=== PATIENT | female | born 1980 | race African-American/Black ===

== ENCOUNTER 2018-04-17 10:53 | Emergency (ER) | payer SELFPAY ==
[2018-04-17 11:55] LABS: #Basophils 0.1 thou/uL (0.0-0.2); #Eosinphils 0.1 thou/uL (0.0-0.7); #Lymphocytes 2.8 thou/uL (1.20-3.40); #Monocytes 0.6 thou/uL (0.11-0.59); #Neutrophils 5.3 thou/uL (1.40-6.50); %Basophils 1.7 % (0.0-1.0); %Eosinophils 1.4 % (0.0-10.0); %Lymphocytes 31.5 % (21.0-51.0); %Monocytes 6.1 % (0.0-10.0); %Neutrophils 59.3 % (42.0-75.0); Hemoglobin 11.7 g/dL (12.0-16.0); Mean Corpuscular Hemoglobin 28.3 pg (27.0-31.0); Mean Corpuscular Volume 91.3 fL (78.0-98.0); Mean Platelet Volume 9.3 fL (7.4-10.4); Platelet Count 318 thou/uL (130-400); RBC Distribution Width 12.8 % (11.5-14.5); Red Blood Cell (RBC) Count 4.12 mill/uL (4.20-5.40); White Blood Cell (WBC) Count 8.9 thou/uL (4.8-10.8)
[2018-04-17 12:00] LABS: BHCG - Serum Negative (NEGATIVE); Pregs Control Background? CLEAR/WHITE (CLR/WHITE); Pregs Control Bar Appear? YES (CONTROL BAR)
[2018-04-17 12:09] LABS: ALT (SGPT) 11 U/L (8-55); AST (SGOT) 20 U/L (5-34); Albumin 3.8 g/dL (3.5-5.0); Alkaline Phosphatase 60 U/L (40-150); Anion Gap 12 mmol/L (10-20); BUN (Urea Nitrogen) 8 mg/dL (7.0-18.7); Bilirubin, Total 0.3 mg/dL (0.2-1.2); Calc. Creatinine Clearance 0 mL/min (70-130); Calcium 8.8 mg/dL (7.8-10.44); Carbon Dioxide 23 mmol/L (22-29); Chloride 106 mmol/L (98-107); Estimated GFR-MDRD Greater than 90; Globulin 3.8 g/dL (2.4-3.5); Glucose 95 mg/dL (70-105); Potassium 3.5 mmol/L (3.5-5.1); Protein, Total 7.6 g/dL (6.0-8.3); Sodium 137 mmol/L (136-145)
[2018-04-17 12:30] LABS: Bilirubin Negative (Negative); Blood, Urine Large (Negative); Clarity Cloudy (Clear); Glucose, Urine (Dipstick) Negative (Negative); Leukocyte Negative (Negative); Nitrite Negative (Negative); Protein, Urine (Dipstick) Negative (Neg-Trace); Urobilinogen 0.2 mg/dL (0.2-1.0); pH, Urine 7.5 (5.0-9.0)
[2018-04-17 12:34] LABS: Pregnancy Test - Urine (BHCG) Negative (Negative); Pregu Control Bar Appear? YES (CONTROL BAR)
[2018-04-17 12:35] LABS: Pregu Control Background? CLEAR/WHITE (CLR/WHITE); RBC/HPF GREATER THAN 50-TNTC HPF (0-3)
[2018-04-17 12:36] LABS: Squamous Epithelial 0-3 HPF (0-3); Trichomonas/HPF 1+ HPF (None Seen); WBC/HPF 0-3 HPF (0-3)
[2018-04-17 12:37] LABS: Bacteria/HPF 1+ HPF (None Seen)
--- NOTE | 2018-04-17 13:23 | ULT ---
ULTRASOUND PELVIC ULTRASOUND TRANSVAGINAL DOPPLER DUPLEX: 04/17/2018 HISTORY: A 37-year-old female with heavy vaginal bleeding for 10 days. Menometrorrhagia. TECHNIQUE: Transabdominal transducer used to evaluate intrapelvic contents using the urinary bladder as an acous tic window. Endovaginal transducer used to visualize intrapelvic contents in greater detail. Color fl ow Doppler and Pulsed Doppler spectral waveform analysis of ovaries. FINDINGS: Uterus: 8.5 x 3.5 x 4.5 cm. Endometrial stripe: 1.9 cm (19 mm) with heterogeneous echogenicity. Right ovary: Difficult to measure because of multiple very large exophytic cysts. Left ovary: 5 x 2.5 x 4.5 cm. Uterine leiomyoma (fibroid): None. Blood flow in both ovaries: Present. Ovarian cyst: Multiple bilateral ovarian cysts. The largest on the right is 10 x 5.5 x 7 cm. The l argest on the left is 2.5 x 2 x 1 cm. Free fluid in the cul-de-sac: None. IMPRESSION: 1. Thickened, heterogeneous endometrial stripe. 2. Multiple bilateral ovarian cysts. The ones on the right are larger. This includes a very large, 10 x 7 x 5.5 cm exophytic right ovarian cyst. STEPHANI Boyd POS: YUNG
== END 2018-04-17 14:00 | disposition home or self-care (01) ==
LOC: SCSER 10:53
DX: N93.9 Abnormal uterine and vaginal bleeding, unspecified (principal); N83.201 Unspecified ovarian cyst, right side; N83.202 Unspecified ovarian cyst, left side; A59.01 Trichomonal vulvovaginitis; F17.210 Nicotine dependence, cigarettes, uncomplicated; E03.9 Hypothyroidism, unspecified; Z79.899 Other long term (current) drug therapy
CPT/HCPCS: 36415; 76856; 80053; 81003; 81015; 81025; 84703; 85025